=== PATIENT | female | born 1990 | race Caucasian/White ===

== ENCOUNTER 2017-06-27 07:57 | Outpatient (CLI) | payer OTHER ==
--- NOTE | 2017-06-27 11:56 | MRI ---
BRAIN MRI WITH AND WITHOUT CONTRAST: History: Facial pain and asymmetry. FINDINGS: There is no evidence of ventriculomegaly, mass effect, or acute territorial infarction. No significan t signal abnormalities of the brain parenchyma is present. Evaluation of the skull base cranial nerve s reveals no evidence of pathologic enhancement or obvious mass. There is no enhancing intraaxial les ion. Incidental note of paranasal sinus opacification of the frontal ethmoidal and maxillary sinuses. IMPRESSION: 1. No acute intracranial abnormalities. 2. No evidence of skull base mass evident. POS: CHRISTOPHER
[2017-06-27] MEDS ORDERED: Gadobenate Dimeglumine 529 MG/1 ML (20ML VIAL) ONE (13:14)
== END 2017-06-27 07:58 | disposition home or self-care (01) ==
LOC: MRI 07:57
PROVIDERS: ATTEND Otolaryngology Plastic Surgery within the Head & Neck
DX: R51 Headache (principal)
CPT/HCPCS: 70553; A9579

== ENCOUNTER 2017-06-29 19:33 | Emergency (ER) | payer OTHER ==
[2017-06-29 21:38] LABS: #Eosinphils 0.1 thou/uL (0.0-0.7); #Lymphocytes 2.7 thou/uL (1.20-3.40); #Monocytes 0.6 thou/uL (0.11-0.59); #Neutrophils 3.3 thou/uL (1.40-6.50); %Basophils 0.4 % (0.0-1.0); %Lymphocytes 39.7 % (21.0-51.0); %Monocytes 9.5 % (0.0-10.0); %Neutrophils 49.4 % (42.0-75.0); Hemoglobin 13.2 g/dL (12.0-16.0); Mean Corpuscular HGB CONC 34.2 g/dL (32.0-36.0); Mean Corpuscular Hemoglobin 32.6 pg (27.0-31.0); Mean Corpuscular Volume 95.3 fl (81.0-99.0); Mean Platelet Volume 5.7 fL (7.4-10.4); Platelet Count 291 thou/uL (130-400); RBC Distribution Width 10.8 % (11.5-14.5); Red Blood Cell (RBC) Count 4.05 mill/uL (4.20-5.40); White Blood Cell (WBC) Count 6.8 thou/uL (4.8-10.8)
[2017-06-29 22:00] LABS: ALT (SGPT) 13 U/L (8-55); AST (SGOT) 13 U/L (5-34); Albumin 4.2 g/dL (3.5-5.0); Alkaline Phosphatase 69 U/L (40-150); Anion Gap 11 mmol/L (10-20); BUN (Urea Nitrogen) 10 mg/dL (7.0-18.7); Bilirubin, Total 0.6 mg/dL (0.2-1.2); Calc. Creatinine Clearance 0 mL/min (70-130); Calcium 9.3 mg/dL (7.8-10.44); Carbon Dioxide 26 mmol/L (22-29); Chloride 105 mmol/L (98-107); Estimated GFR-MDRD 84; Globulin 2.7 g/dL (2.4-3.5); Glucose 116 mg/dL (70-105); Potassium 3.4 mmol/L (3.5-5.1); Protein, Total 6.9 g/dL (6.0-8.3); Sodium 139 mmol/L (136-145)
--- NOTE | 2017-06-30 00:26 | ULT ---
LEFT UPPER EXTREMITY VENOUS DOPPLER WITH SPECTRAL ANALYSIS AND COLOR FLOW EVALUATION 06/29/17 HISTORY: Focal area of swelling/edema at the level of the wrist with associated pain after placement of a paula pheral intravenous catheter two days ago. FINDINGS: Cullen scale, color flow, doppler evaluation, and spectral analysis of the left upper extremity venous structures is performed with 2D imaging. There is normal lumen compressibility and flow seen within t he left internal jugular, axillary, and brachial veins with normal flow demonstrated within the left subclavian vein. There is normal lumen compressibility and flow within the left upper extremity basil ic vein. The cephalic vein is not visualized. At the level of the wrist, in a superficial vein, there is increased luminal echogenicity and decreas ed lumen compressibility consistent with thrombus within a superficial vein at the level of the wrist . IMPRESSION: 1. Focal short segment thrombus within a superficial vein at the level of the left wrist. 2. No evidence of a DVT involving the visualized deep venous structures left upper extremity. POS: CHRISTOPHER
== END 2017-06-30 00:07 | disposition home or self-care (01) ==
LOC: ERS 19:33
DX: T82.868A Thrombosis due to vascular prosthetic devices, implants and grafts, initial encounter (principal); F41.9 Anxiety disorder, unspecified
CPT/HCPCS: 36415; 80053; 85025; 85652; 86140

== ENCOUNTER 2021-11-10 14:26 | Outpatient (CLI) | payer OTHER | END 2021-11-10 14:27 | disposition home or self-care (01) | LOC: SCSRAD 14:26 | PROVIDERS: ATTEND Family Medicine | DX: R05.3 Chronic cough (principal) | CPT/HCPCS: 71046 ==